=== PATIENT | male | born 1985 | race Caucasian/White ===

== ENCOUNTER 2017-03-02 08:10 | Observation (INO) | payer BC, OTHER ==
[2017-03-02] VITALS (18 sets, daily range): BP systolic 123–156; BP diastolic 68–92; PULSE 66–110; RESP 12–20; Ht 180.3 cm; Wt 83.2 kg
[~2017-03-02] VITALS: Ht 180.3 cm; Wt 83.2 kg
[~2017-03-02 08:10] MED LIST: GLYCOPYRROLATE 0.4 MG INJ ONE; NEOSTIGMINE 3 MG/3 ML SYRINGE ONE
--- NOTE | 2017-03-02 11:29 | HPN ---
Date/Time of Note Date/Time of Note DATE: 03/02/17 TIME: 11:29 Interval H&P Admission Note Pt. seen H&P reviewed: No system changes MICKEY SUAREZ MD Mar 02, 2017 11:29
[2017-03-02] MEDS ORDERED: GELATIN SIZE 100 SPONGE ONE (12:05)
[2017-03-02] MEDS ORDERED: LIDOCAINE 2%/EPI 30 ML INJ ONE (12:05)
[2017-03-02] MEDS ORDERED: THROMBIN 5000 UNIT VIAL ONE (12:06)
[2017-03-02] MEDS ORDERED: FENTAnyl 50 MCG/ML VIAL ONE (12:10)
[2017-03-02] MEDS ORDERED: ROCURONIUM 50 MG INJ ONE (12:10)
[2017-03-02] MEDS ORDERED: LIDOCAINE 2% (SDV) 5 ML INJ ONE (12:10)
[2017-03-02] MEDS ORDERED: MIDAZOLAM 1 MG/ML 2 ML INJ ONE (12:10)
[2017-03-02] MEDS ORDERED: PROPOFOL 20 ML ONE (12:10)
[2017-03-02] MEDS ORDERED: SUCCINYLCHOLINE CHLORIDE 100 MG/5 ML SYG IV ONE (12:10)
[2017-03-02] MEDS ORDERED: POLYMYXIN/BACITRACIN 1L IRRIG ONE (12:24)
[2017-03-02] MEDS ORDERED: CEFAZOLIN 1 GM INJ ONE (12:38)
[2017-03-02] MEDS ORDERED: DEXAMETHASONE 4 MG/ML 1 ML INJ ONE (12:42)
[2017-03-02] MEDS ORDERED: FAMOTIDINE 20 MG INJ ONE (12:42)
[2017-03-02] MEDS ORDERED: ONDANSETRON 4 MG INJ ONE (12:42)
[2017-03-02] MEDS ORDERED: HYDROmorphONE 2 MG/ML SYG ONE (12:50)
[2017-03-02] MEDS ORDERED: LIDOCAINE 2%/EPI MPF (SDV) 20 ML VIAL INJ ONE (12:58)
[2017-03-02] MEDS ORDERED: POLYMYXIN/BACITRACIN 1L IRRIG IRR ONE (12:58)
[2017-03-02] MEDS ORDERED: THROMBIN 5000 UNIT VIAL TOP ONE (12:58)
[2017-03-02] MEDS ORDERED: HEMOSTATIC MATRIX SYG ZFS ONE (12:58)
[2017-03-02] MEDS ORDERED: ONDANSETRON 4 MG INJ IV PRN ×2 (14:00→15:30)
[2017-03-02] MEDS ORDERED: FENTAnyl 50 MCG/ML VIAL IV PRN ×3 (14:00)
[2017-03-02] MEDS ORDERED: PROCHLORPERAZINE 10 MG INJ IV PRN (14:00)
[2017-03-02] MEDS ORDERED: HYDROmorphONE (0.2 MG/ML) 10ML SYG IV PRN ×3 (14:00)
[2017-03-02] MEDS ORDERED: DIPHENHYDRAMINE 50 MG INJ IV PRN (14:00)
[2017-03-02] MEDS ORDERED: MEPERIDINE 25 MG INJ IV PRN (14:00)
[2017-03-02] MEDS ORDERED: OXYCODONE/ACETAMINOPHEN (5/325) TAB PO PRN ×2 (14:00)
[2017-03-02] MEDS ORDERED: BETAMET NA PHOS/AC(6 MG/ML) 5ML INJ ONE (14:55)
[2017-03-02] MEDS ORDERED: HYDROCODONE/APAP (5/325) TAB PO PRN ×2 (15:30)
[2017-03-02] MEDS ORDERED: NACL 0.9% 3 ML SYG IV SCH (15:30)
[2017-03-02] MEDS ORDERED: PROCHLORPERAZINE 10 MG TAB PO PRN (15:30)
[2017-03-02] MEDS ORDERED: ACETAMINOPHEN 325 MG TAB PO PRN (15:30)
[2017-03-02] MEDS ORDERED: NALOXONE (0.4 MG/ML) INJ IV PRN (15:30)
--- NOTE | 2017-03-02 15:42 | OPR ---
Date/Time of Note Date/Time of Note DATE: 03/02/17 TIME: 15:22 Operative Report Free Text/Dictation DATE OF OPERATION: 03/02/2017 PREOPERATIVE DIAGNOSES: 1. 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 Right sided L4-L5 lateral recess stenosis with disc herniation and L5 radiculopathy POSTOPERATIVE DIAGNOSES: 1. 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 Right sided L4-L5 lateral recess stenosis with disc herniation and L5 radiculopathy OPERATION PERFORMED: 1. Right L5-S1 daniella-laminotomy, medial facetectomy, foraminotomy and microdiskectomy 2. Right L4-L5 daniella-laminotomy, medial facetectomy, foraminotomy and microdiskectomy SURGEON: Mickey Suarez MD RN TRAUMA: Gsu Hernandez MD ANESTHESIA: General endotracheal intubation ESTIMATED BLOOD LOSS: 50 mL SURGICAL INDICATION: The patient is a 31 year-old male who presents with a several month history of worsening right lower extremity pain with right sided L5 and S1 radiculopathy. He was found to have a right paracentral disc herniation and right sided lateral recess stenosis at L4-L5 and L5-S1 which correlated well with his symptoms. The patient had failed conservative treatment. Risks, benefits, and alternatives to the procedure were explained to the patient and they wished to proceed. Risks explained included but were not exclusive of bleeding, infection, cauda equina syndrome, nerve injury, dural tear, iatrogenic instability requiring fusion, recurrent disc herniation, fracture, vascular injury, bowel injury, stroke, heart attack and pulmonary embolism. DESCRIPTION OF TECHNIQUE: The patient was identified in the preoperative area and taken to the operating room. Rapid induction of general endotracheal anesthesia was performed. The patient was given 2 g of cefazolin for prophylaxis. The patient was then placed in the prone position on the Blayne frame on a Jung flat top table with all prominences well padded. The back was prepped and draped in the usual sterile manner. Using a spinal needle and intraoperative fluoroscopy, the appropriate level was clearly identified (L5-S1) . The skin was injected using 1% lidocaine with epinephrine. Longitudinal midline incision was then created using a 10 blade. Further dissection through soft tissue was performed using electrocautery down to the right spinous processes.Dissection was taken down the lamina and over the facet joint capsule. A self-retaining retractor was applied. Again, intraoperative fluoroscopy confirmed the level.The microscope was brought into use for microdissection. A small portion of the caudal aspect of the cephalad lamina, medial facet the bone overlying the foramen were resected using a high-speed bur and a series of Kerrison rongeurs. A series of Kerrison rongeurs were then used to resect the ligamentum flavum. The dura and traversing nerve root were both directly visualized. These were retracted gently in a medial direction. Immediately, the extruded disc fragment was noted. The pseudo anulus was incised using an 11 blade. Several loose fragments of disk were removed. These were removed back to a stable portion of the disk. The disk space was further pressurized using a using normal saline through a syringe to ensure that no loose fragments remained behind. A portion of the disc was noted to be calcified. Palpation with a ball-tip probe did not reveal any further stenosis. The traversing S1 nerve root was noted to be significantly decompressed. We then focused our attention on the right sided L4-5 decompression and diskectomy procedure. Using a spinal needle and intraoperative fluoroscopy, the appropriate level was clearly identified (L4-L5). The skin was injected using 1 % lidocaine with epinephrine. Our longitudinal midline incision extended using a 10 blade. Further dissection through soft tissue was performed using electrocautery down to the right spinous processes of L4. Dissection was taken down the lamina and over the facet joint capsule. A self-retaining retractor was applied. Again, intraoperative fluoroscopy confirmed the level.The microscope was brought into use for microdissection. A small portion of the caudal aspect of the cephalad lamina, medial facet the bone overlying the foramen were resected using a high-speed bur and a series of Kerrison rongeurs. A series of Kerrison rongeurs were then used to resect the ligamentum flavum. The dura and traversing nerve root were both directly visualized. These were retracted gently in a medial direction. The extruded disc fragment was noted. There were also some loose fragments noted that were removed. The pseudo anulus was incised using an 11 blade. Several loose fragments of disk were removed. These were removed back to a stable portion of the disk. The disk space was further pressurized using a using normal saline through a syringe to ensure that no loose fragments remained behind. A portion of the disc at this level was also noted to be calcified. Palpation with a ball-tip probe did not reveal any further stenosis. The traversing L5 nerve root was noted to be significantly decompressed. Meticulous attention was then paid towards hemostasis using FloSeal. Care was taken to remove all FloSeal prior to wound closure. The fascia was then closed using 0 Vicryl in an interrupted fashion. Subcutaneous tissue was closed using 2 -0 Vicryl in an interrupted fashion. The skin was closed using a running 4-0 Monocryl stitch. The wound was dressed using Dermabond and a 4x4 sterile gauze. The patient was returned to the supine position. He was extubated immediately postoperatively and taken to the recovery room in stable condition. Anesthesia Type: general Estimated Blood Loss: 10 - 50 ml's Transfusion Required: yes Specimens L5-S1 and L4-L5 disc Grafts/Implants: none Complications: no Pt Condition Post Procedure: stable Disposition: PACU MICKEY SUAREZ MD Mar 02, 2017 15:39
--- NOTE | 2017-03-02 15:54 | RADRPT ---
PROCEDURE: Intraoperative imaging of the lumbar spine with fluoroscopy. CLINICAL INDICATION: Back pain. Intraoperative. TECHNIQUE: Four images of the lumbar spine were obtained in the operating room with an image inten sifier. No radiologist was in attendance. Fluoroscopy time is 11.6 seconds . COMPARISON: No prior study is available for comparison. FINDINGS: For the purposes of this report, the last apparent true disc level is considered to be L5-S1. Based on this, the posterior surgical history as are present at the L4-5 and L5-S1 levels. IMPRESSION: 1. Intraoperative imaging of the lumbar spine. RPTAT: QQ .Deon Borrero MD, MD Date Time Electronically viewed and signed by .Deon Borrero MD, MD on 03/02/2017 15:54 .R/
[2017-03-02] MEDS: CEFAZOLIN 1 GM/50 ML (PMX) 50 ML IVPB SCH (17:29)
[2017-03-02] MEDS: HYDROmorphONE 1 MG/ML SYG IV PRN (20:29)
[2017-03-03] VITALS: BP 128/84; PULSE 69; RESP 20
[2017-03-03] MEDS: CEFAZOLIN 1 GM/50 ML (PMX) 50 ML IVPB SCH ×3 (00:05→12:00)
[2017-03-03] MEDS: HYDROmorphONE 1 MG/ML SYG IV PRN ×3 (00:48→09:42)
[2017-03-03 03:33] VITALS: BP 114/70; RESP 18
[2017-03-03 08:07] VITALS: BP 134/75; RESP 16
--- NOTE | 2017-03-03 11:39 | PDOCDIS ---
Discharge Instructions CONDITION Patient Condition: Good HOME CARE INSTRUCTIONS: Diet Instructions: Regular ACTIVITY: Activity Restrictions: Avoid heavy lifting Avoid Heavy Housework Bathing Restrictions: Shower FOLLOW UP/APPOINTMENTS Follow-up Plan Follw-up in 2 weeks with MICKEY Lay MD Mar 03, 2017 11:39
--- NOTE | 2017-03-03 22:33 | DS ---
DATE OF ADMISSION: 03/02/2017 DATE OF DISCHARGE: 03/03/2017 DIAGNOSES ON ADMISSION: Right sided L4-L5 and L5-S1 subarticular stenosis with herniated nucleus pulposus with right-sided L5 and S1 radiculopathy. DISCHARGE DIAGNOSIS: Right sided L4-L5 and L5-S1 subarticular stenosis with herniated nucleus pulposus with right-sided L5 and S1 radiculopathy. PROCEDURES PERFORMED DURING THIS ADMISSION: On 03/02/2017, the patient underwent a right-sided L4-S1 decompression with microdiskectomy. HOSPITAL COURSE: The patient is a pleasant 31-year-old male with a chronic history of worsening right lower extremity pain with weakness who failed to improve with conservative course of treatment. On 03/02/2017, he was admitted to the hospital and underwent a right sided L4-S1 decompression with diskectomy. The patient's hospital course was uncomplicated. On postop day number 1, he was cleared by Physical Therapy. He was neurovascularly intact. His pain is under good control with p.o. [place]. He had no acute overnight events. He was subsequently discharged in the a.m. FOLLOWUP PLAN: The patient was made an appointment to follow up with Dr. Ace in 2 weeks. He was told to contact our office at an earlier point if he developed any fevers, chills, shortness of breath, motor or sensory changes or issues with his wound. ACTIVITY RESTRICTIONS: The patient was told to avoid any heavy lifting greater than 20 pounds and avoid any excessive bending or twisting. MEDICATION AT DISCHARGE: [place] 5/325 mg 1 tab p.o. q.4-6 hours p.r.n. pain. DIET AT DISCHARGE: Regular. Dictated By: Mike Ace MD /frankie/aure /Document#: [id number]
== END 2017-03-03 12:48 | disposition home or self-care (01) ==
LOC: SDS 08:10 → MS1 15:21
PROVIDERS: ADMIT Orthopaedic Surgery; ATTEND Orthopaedic Surgery
DX: M48.07 Spinal stenosis, lumbosacral region (principal); M51.17 Intervertebral disc disorders with radiculopathy, lumbosacral region; M48.06 Spinal stenosis, lumbar region; M51.16 Intervertebral disc disorders with radiculopathy, lumbar region
CPT/HCPCS: 63030; 63035; 72100; 86850; 86900; 86901; 96365; 96374; 96375; 96376; 97161; G0378; J0690; J0702; J1100; J1170; J2250; J2405; J2710; J3010; J7999